=== PATIENT | male | born 1955 | race Caucasian/White ===

== ENCOUNTER 2020-04-25 10:59 | Inpatient (IN) ==
[2020-04-25] MEDS ORDERED: 0.9 % SODIUM CHLORIDE 2,000 ML IV ONE (11:37)
--- NOTE | 2020-04-25 12:41 | Cat Scan Report ---
CLINICAL INFORMATION: Trauma COMPARISON: 02/21/[address] TECHNIQUE: 2.5 mm helical slices were obtained in the skull base to vertex. Following reconstruction, axial reformatted images were reviewed at bone and parenchymal windows. The exam was performed using radiation dose optimization techniques including, but not limited to, automated exposure control, adjustment of the mA and/or kV according to patient size and use of iterative reconstruction technique. FINDINGS: The ventricles, sulci, fissures, and cisterns are normal in size and configuration for age. No extra-axial fluid collections are identified. The cerebrum, brainstem and cerebellum are unremarkable. There is no evidence of hemorrhage, mass effect, or edema. Bone windows show no osseous abnormality. moderate mucosal thickening in the left sphenoid and posterior left ethmoid air cell appreciated. Ethmoid mucosal thickening is new IMPRESSION: Normal head CT without contrast for age. Mild left sphenoid and left ethmoid sinusitis Interpreted and Authenticated by: Gokul Foss 04/25/20
[2020-04-25 12:51] LABS: Basophils # (Auto) 0.03 K/mcL (0.00-0.20); Basophils % (Auto) 0.2 % (0.0-2.0); Eosinophils # (Auto) 0.04 K/mcL (0.00-0.70); Eosinophils % (Auto) 0.3 % (0.0-7.0); Hematocrit 39.3 % (41.0-55.0); Hemoglobin 13.8 g/dL (13.5-16.5); Lymphocytes # (Auto) 0.79 K/mcL (1.50-4.80); Lymphocytes % (Auto) 6.6 % (15.0-49.0); Mean Cell Volume 85.2 fL (80.0-100.0); Mean Corpuscular HGB Conc 35.1 g/dL (31.0-36.0); Mean Platelet Volume 9.5 fL (7.4-10.4); Monocytes # (Auto) 0.76 K/mcL (0.10-0.90); Monocytes % (Auto) 6.3 % (1.0-12.0); Neutrophils % (Auto) 86.6 % (38.0-78.0); Platelet Count 270 K/mcL (140-440); RBC 4.61 M/mcL (4.50-5.90); Red Cell Distribution Width 15.7 % (11.5-14.5)
[2020-04-25 13:09] LABS: Alcohol, Blood < 10.0 mg/dL
[2020-04-25 13:25] LABS: proBNP 169.7 pg/mL (<125.0)
[2020-04-25 13:29] LABS: Thyroid Stimulating Hormone 2.92 uIU/mL (0.27-5.01)
[2020-04-25 13:35] LABS: INR 3.2 (0.9-1.1); Prothrombin Time 33.8 sec (11.9-14.5)
[2020-04-25 13:42] LABS: ALT/SGPT 17 U/L (<40); AST/SGOT 47 U/L (<40); Albumin 2.9 gm/dL (3.2-5.2); Albumin/Globulin Ratio 0.8 (1.0-2.3); Alkaline Phosphatase 100 U/L (39-117); Bilirubin,Total 1.1 mg/dL (0.1-1.0); Blood Urea Nitrogen 9 mg/dL (8-23); Calcium 7.7 mg/dL (8.6-10.4); Carbon Dioxide 27 mmol/L (22-30); Chloride 73 mmol/L (96-108); Globulin 3.8 gm/dL (2.2-3.7); Glomerular Filtration Rate 41; Glucose 152 mg/dL (70-105)
[2020-04-25] MEDS ORDERED: 0.9 % SODIUM CHLORIDE 1,000 ML IV ONE (13:50)
[2020-04-25] MEDS ORDERED: POTASSIUM CHLORIDE 20 MEQ TABLET PO ONE (13:51)
[2020-04-25] MEDS ORDERED: POTASSIUM CHLORIDE 40 MEQ in DEXTROSE 5% IN WATER 500 ML IV ONE ×2 (13:51→18:42)
--- NOTE | 2020-04-25 14:13 | Emergency Department Note ---
Fall HPI General Chief Complaint: Fall Stated Complaint: Fall Time Seen by Provider: 04/25/20 11:07 Source: patient Mode of arrival: ambulatory History of Present Illness HPI Narrative: Narrative: 64-year-old male fell and was generally weak. He could not get up off the floor. His son tried to help him as well but he could not get up. He feels weak in the legs and this has been going on for over a year now. Not new. He did not injure himself with that fall he did not hit his head nor his neck. He did not lose consciousness. He is on Xarelto for atrial fibrillation. He does admitting to drinking about 1/5 of hard alcohol every 3 days. He last drank at 11 PM last night. He is on 3 blood pressure medicines as well and his blood pressure here today is quite low so fluids were started on route by EMS-systolic was in the 70s. He denies recent illness or fever. Denies nausea vomiting diarrhea. However he did have some diarrhea 3 to 4 days ago. Related Data Home Medications Medication Instructions Recorded Confirmed rivaroxaban 20 mg tablet 20 mg PO QDAY 12/06/18 04/25/20 Previous Rx's Medication Instructions Recorded hydroxyzine HCl 25 mg tablet See Rx Instructions .ROUTE 12/11/19 .COMPLEX #30 unknown measurement unit code: tablet lisinopril 20 See Rx Instructions .ROUTE 03/05/20 mg-hydrochlorothiazide 25 mg tablet .COMPLEX #90 tab omeprazole 20 mg capsule,delayed See Rx Instructions .ROUTE 03/05/20 release .COMPLEX #90 cap polymyxin B sulfate 10,000 1 drp OPHTHALMIC Q3H 7 Days #10 ml 03/05/20 unit-trimethoprim 1 mg/mL eye drops verapamil 240 mg tablet,extended See Rx Instructions .ROUTE 03/11/20 release .COMPLEX #60 tab Allergies Allergy/AdvReac Type Severity Reaction Status Date / Time codeine AdvReac Severe Unknown Verified 03/05/20 10:14 Bee Stings AdvReac Unknown Unknown Uncoded 03/05/20 10:14 Kiwi fruit AdvReac Unknown Unknown Uncoded 03/05/20 10:14 Review of Systems ROS ROS Narrative: Narrative: All systems ED: reviewed and negative except as stated. [facility] Narrative Patient History Narrative: Narrative: Medical/Surgical/Family History All Active Problems (Updated 04/25/20 @ 15:27 by Cristino Heller MD) Acute hypokalemia (Acute) Acute kidney injury (Acute) Acute hyponatremia (Acute) Alcohol abuse (Acute) Acidosis, lactic (Acute) Hypomagnesemia (Acute) Fall (Acute) Weakness (Acute) Lower extremity edema (Acute) Conjunctivitis (Acute) Leg weakness, bilateral (Acute) Stasis dermatitis of both legs (Chronic) HTN (hypertension) (Chronic) TIA (transient ischemic attack) (Chronic) GERD (gastroesophageal reflux disease) (Chronic) Atrial fibrillation (Chronic) Chronic back pain (Chronic) Skin lesion (Chronic) Screening for malignant neoplasm of prostate (Chronic) Screening for malignant neoplasm of colon (Chronic) Physical exam (Chronic) Elevated liver enzymes (Chronic) Hyperlipidemia (Chronic) Medical History Atrial fibrillation (Chronic) Chronic back pain (Chronic) Elevated liver enzymes (Chronic) GERD (gastroesophageal reflux disease) (Chronic) History of stroke (Acute) HTN (hypertension) (Chronic) Hyperlipidemia (Chronic) Physical exam (Chronic) Screening for malignant neoplasm of colon (Chronic) Screening for malignant neoplasm of prostate (Chronic) Skin lesion (Chronic) TIA (transient ischemic attack) (Chronic) Surgical History Hx of arthroscopy of right knee (Acute) Hx of hernia repair (Acute) Hernia x2 Hx of wisdom tooth extraction (Acute) Family History Mother , Age 73 Stroke No problems noted. Father , Age 64 Lung Cancer No problems noted. Social History Smoking Status: Former smoker Alcohol Intake Frequency: holiday/special occasion only Exam Narrative Narrative: Narrative: No acute distress resting able to answer questions appropriately. Normocephalic atraumatic. Conjunctive are clear sclerae white nonicteric. No nasal discharge or congestion. Oropharynx pink and moist. Tongue is midline and face is symmetrical. Neck is supple without lymphadenopathy thyromegaly or carotid bruit. Heart is regular rate and rhythm no murmur appreciated. Lungs are clear to auscultation bilaterally without wheezes rales rhonchi or respiratory distress. Abdomen is soft nontender nondistended. No peritoneal signs or guarding. No pedal edema. +2 radial pulse. Alert oriented. I do not see any jaundice or icterus here. No asterixis. He may have some mild resting tremor but this is fine amplitude. Course Vital Signs Vital signs: Vital Signs Temperature 98.3 F 04/25/20 11:00 Pulse Rate 83 04/25/20 11:00 Respiratory Rate 18 04/25/20 11:00 Blood Pressure 101/49 04/25/20 11:00 Pulse Oximetry (%) 97 04/25/20 11:00 Temperature 98.3 F 04/25/20 11:00 Pulse Rate 56 L 04/25/20 13:47 Respiratory Rate 21 04/25/20 13:58 Blood Pressure 104/55 04/25/20 13:58 Pulse Oximetry (%) 89 L 04/25/20 13:47 MDM MDM Narrative Medical decision making narrative: Narrative: Work-up ordered with laboratory CT scan of the head EKG etc. broad differential but suspect alcohol-related issues He does have a mild leukocytosis and a significant hypokalemia. Noted elevated creatinine and decreased sodium. This could all cause some significant weakness. His blood pressure stabilized with IV fluids and he did not require pressors. CT of the head was negative. K rider is ordered for the hypokalemia Magnesium was low as well some mag rider was ordered. Because his lactic acid was so high-we continued IV fluids-he had 2 L in and then we slowed it down to 250 an hour. Concern for sepsis so we will get blood cultures and start Zosyn. He does have leukocytosis but not a fever. Alana Covid test was ordered in anticipation of admission. He is mildly orthostatic with standing. Procalcitonin is mildly elevated After getting all these fluids we repeated the lactic acid and ordered a blood gas. Chest x-ray is unrevealing. Liver labs do not show serious concern Discussed findings with the patient as well as with Dr. Gorman, our hospitalist. Dr. Gorman agreed to accept the patient- patient will need to come in to the ICU. At this time he is not exhibiting signs of withdrawal Lab Data Lab results reviewed: Yes I reviewed the patient's lab results. Result diagrams: 04/25/20 12:06 04/25/20 12:06 Labs: Lab Results 04/25/20 04/25/20 04/25/20 Range/Units 12:05 12:05 12:06 WBC 12.0 H (4.5-11.0) K/mcL RBC 4.61 (4.50-5.90) M/mcL Hgb 13.8 (13.5-16.5) g/dL Hct 39.3 L (41.0-55.0) % MCV 85.2 (80.0-100.0) fL MCH 29.9 (26.0-34.0) pg MCHC 35.1 (31.0-36.0) g/dL RDW 15.7 H (11.5-14.5) % Plt Count 270 (140-440) K/mcL MPV 9.5 (7.4-10.4) fL Neut % (Auto) 86.6 H (38.0-78.0) % Lymph % (Auto) 6.6 L (15.0-49.0) % Norman % (Auto) 6.3 (1.0-12.0) % Eos % (Auto) 0.3 (0.0-7.0) % Baso % (Auto) 0.2 (0.0-2.0) % Lymph # (Auto) 0.79 L (1.50-4.80) K/mcL Norman # (Auto) 0.76 (0.10-0.90) K/mcL Eos # (Auto) 0.04 (0.00-0.70) K/mcL Baso # (Auto) 0.03 (0.00-0.20) K/mcL Absolute Neutrophils 10.40 H (1.80-8.00) K/mcL PT (11.9-14.5) sec INR (0.9-1.1) VBG Lactic Acid (0.5-2.0) mmol/L Sodium (133-145) mmol/L Potassium (3.3-5.1) mmol/L Chloride (96-108) mmol/L Carbon Dioxide (22-30) mmol/L Anion Gap (8.0-16.0) BUN (8-23) mg/dL Creatinine (0.7-1.2) mg/dL GFR Calculation Glucose (70-105) mg/dL Calcium (8.6-10.4) mg/dL Total Bilirubin (0.1-1.0) mg/dL AST (<40) U/L ALT (<40) U/L Alkaline Phosphatase (39-117) U/L NT-Pro-B Natriuret Pep 169.7 H (<125.0) pg/mL Total Protein (5.9-8.4) gm/dL Albumin (3.2-5.2) gm/dL Globulin (2.2-3.7) gm/dL Albumin/Globulin Ratio (1.0-2.3) Procalcitonin 0.14 H (<0.10) ng/mL TSH 2.92 (0.27-5.01) uIU/mL Ethyl Alcohol (<0.010) gm/dL 04/25/20 04/25/20 04/25/20 Range/Units 12:06 12:06 12:06 WBC (4.5-11.0) K/mcL RBC (4.50-5.90) M/mcL Hgb (13.5-16.5) g/dL Hct (41.0-55.0) % MCV (80.0-100.0) fL MCH (26.0-34.0) pg MCHC (31.0-36.0) g/dL RDW (11.5-14.5) % Plt Count (140-440) K/mcL MPV (7.4-10.4) fL Neut % (Auto) (38.0-78.0) % Lymph % (Auto) (15.0-49.0) % Norman % (Auto) (1.0-12.0) % Eos % (Auto) (0.0-7.0) % Baso % (Auto) (0.0-2.0) % Lymph # (Auto) (1.50-4.80) K/mcL Norman # (Auto) (0.10-0.90) K/mcL Eos # (Auto) (0.00-0.70) K/mcL Baso # (Auto) (0.00-0.20) K/mcL Absolute Neutrophils (1.80-8.00) K/mcL PT 33.8 H (11.9-14.5) sec INR 3.2 H (0.9-1.1) VBG Lactic Acid 5.7 H* (0.5-2.0) mmol/L Sodium 120 L (133-145) mmol/L Potassium 2.1 L* (3.3-5.1) mmol/L Chloride 73 L (96-108) mmol/L Carbon Dioxide 27 (22-30) mmol/L Anion Gap 19.0 H (8.0-16.0) BUN 9 (8-23) mg/dL Creatinine 1.7 H (0.7-1.2) mg/dL GFR Calculation 41 Glucose 152 H (70-105) mg/dL Calcium 7.7 L (8.6-10.4) mg/dL Total Bilirubin 1.1 H (0.1-1.0) mg/dL AST 47 H (<40) U/L ALT 17 (<40) U/L Alkaline Phosphatase 100 (39-117) U/L NT-Pro-B Natriuret Pep (<125.0) pg/mL Total Protein 6.7 (5.9-8.4) gm/dL Albumin 2.9 L (3.2-5.2) gm/dL Globulin 3.8 H (2.2-3.7) gm/dL Albumin/Globulin Ratio 0.8 L (1.0-2.3) Procalcitonin (<0.10) ng/mL TSH (0.27-5.01) uIU/mL Ethyl Alcohol (<0.010) gm/dL 04/25/20 Range/Units 12:06 WBC (4.5-11.0) K/mcL RBC (4.50-5.90) M/mcL Hgb (13.5-16.5) g/dL Hct (41.0-55.0) % MCV (80.0-100.0) fL MCH (26.0-34.0) pg MCHC (31.0-36.0) g/dL RDW (11.5-14.5) % Plt Count (140-440) K/mcL MPV (7.4-10.4) fL Neut % (Auto) (38.0-78.0) % Lymph % (Auto) (15.0-49.0) % Norman % (Auto) (1.0-12.0) % Eos % (Auto) (0.0-7.0) % Baso % (Auto) (0.0-2.0) % Lymph # (Auto) (1.50-4.80) K/mcL Norman # (Auto) (0.10-0.90) K/mcL Eos # (Auto) (0.00-0.70) K/mcL Baso # (Auto) (0.00-0.20) K/mcL Absolute Neutrophils (1.80-8.00) K/mcL PT (11.9-14.5) sec INR (0.9-1.1) VBG Lactic Acid (0.5-2.0) mmol/L Sodium (133-145) mmol/L Potassium (3.3-5.1) mmol/L Chloride (96-108) mmol/L Carbon Dioxide (22-30) mmol/L Anion Gap (8.0-16.0) BUN (8-23) mg/dL Creatinine (0.7-1.2) mg/dL GFR Calculation Glucose (70-105) mg/dL Calcium (8.6-10.4) mg/dL Total Bilirubin (0.1-1.0) mg/dL AST (<40) U/L ALT (<40) U/L Alkaline Phosphatase (39-117) U/L NT-Pro-B Natriuret Pep (<125.0) pg/mL Total Protein (5.9-8.4) gm/dL Albumin (3.2-5.2) gm/dL Globulin (2.2-3.7) gm/dL Albumin/Globulin Ratio (1.0-2.3) Procalcitonin (<0.10) ng/mL TSH (0.27-5.01) uIU/mL Ethyl Alcohol 0.010 H (<0.010) gm/dL Radiology Data Radiology results reviewed: Yes I reviewed the patient's radiology results. Radiology results narrative: CT scan of the head shows no acute findings but he does have some mild sinusitis which is likely chronic Chest x-ray shows no acute cardiopulmonary disease EKG Data EKG #1: EKG attestation: Yes I reviewed and interpreted this EKG. and Yes There are no EKG findings of acute coronary syndrome EKG results narrative: Atrial fibrillation with a right bundle branch block and ventricular bigeminy. Otherwise normal rate Discharge Plan Patient/Caregiver Discharge Instructions Pt seen by BAIT PACKER/PA only: No Clinical Impression: Acute kidney injury, Lower extremity edema, Acute hypokalemia, Acute hyponatremia, Alcohol abuse, Acidosis, lactic, Hypomagnesemia, Fall, Weakness Patient Disposition: Xfer As Inpt ([facility]) Condition: Fair Follow up with: Juan Gardiner ARNP [Primary Care Provider] - Prescriptions: No Action polymyxin B sulf-trimethoprim [Polytrim] 10,000 unit- 1 mg/mL drops 1 drp OPHTHALMIC Q3H 7 Days Qty: 10 RF: 0 lisinopril-hydrochlorothiazide 20-25 mg tablet See Rx Instructions .ROUTE .COMPLEX Qty: 90 RF: 1 omeprazole 20 mg capsule,delayed release(DR/EC) See Rx Instructions .ROUTE .COMPLEX Qty: 90 RF: 1 hydroxyzine HCl 25 mg tablet 25 mg tablet See Rx Instructions .ROUTE .COMPLEX Qty: 30 RF: 3 verapamil 240 mg tablet extended release See Rx Instructions .ROUTE .COMPLEX Qty: 60 RF: 2 Xarelto 20 mg tablet 20 mg PO QDAY RF: 0
[2020-04-25 14:56] LABS: Appearance,Urine CLEAR (Clear); Bilirubin,Urine Negative (Negative); Color,Urine YELLOW; Culture Indicated,Urine No; Glucose,Urine (UA) Negative (Negative); Ketones,Urine Negative (Negative); Leukocyte Esterase,Urine Negative /ug (Negative); Mucus,Urine FEW /hpf; Nitrate,Urine Negative (Negative); Protein,Urine 30 mg/dL (Negative); Specific Gravity,Urine 1.011 (1.000-1.035); Urine Blood >=1.0 mg/dL (Negative); Urine Hyaline Cast 25 /lph (0-2); Urine RBC 43 /hpf (0-3); Urine Squamous Epithelial Cell < 1 /hpf (0-4); Urine Transitional Epi Cells < 1 /hpf (0-2); Urine WBC 5 /hpf (0-4); Urobilinogen,Urine Negative
[2020-04-25] MEDS ORDERED: PIPERACILLIN SODIUM/TAZOBACTAM 3.375 GM in DEXTROSE 5% IN WATER 50 ML IV ONE (15:19)
[2020-04-25] MEDS ORDERED: MAGNESIUM SULFATE 2 GM/50 ML BAG IV ONE (15:19)
--- NOTE | 2020-04-25 15:26 | XRay Report ---
CLINICAL INFORMATION: elevated wbc COMPARISON: None. FINDINGS: The heart is mildly enlarged. Mediastinum and pulmonary vessels are normal. Lungs are clear. No effusions. IMPRESSION: Mild cardiomegaly - no acute disease Interpreted and Authenticated by: Gokul Foss 04/25/20
--- NOTE | 2020-04-25 15:36 | Internal Med History&Physical ---
HPI History of Present Illness Patient information: Note initiated : 04/25/20 at 3:35 pm Service Date, if different from initiated Date: [] Patient: Deon Kaplan a 64 y/o M admitted on for Fall. Chief Complaint: Weakness and fall History of present illness: Mr. Kaplan is a 64 year old M with a known history of atrial fibrillation on anticoagulation/hypertension and excessive alcoholism who presents to ER following an episode of fall this morning. Patient apparently was not able to get up due to extreme weakness. His symptoms have been ongoing for the last week due to which he has not been able to drive. 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 He has been feeling poorly with loss of appetite/malaise weakness. In addition he endorses to episodes of multiple loose stools 3 days prior to presentation. Ever since has gotten progressively weaker. He denies sick contacts, changes in medications, fever, chills, bloody stool. He does endorse to one episode of emesis in the ER. He denies chest palpitation but endorses lightheadedness dizziness and unable to walk. He drinks fifth of alcohol every day. His last drink was 11 PM yesterday. He has no intentions to quit. He does appear depressed but does not endorses to suicidal ideation or recent hospitalization. He states that his alcohol intake has increased over the last 3 months but could not cite a specific reason other than possibly depression. He has some [id number] in [place] who [place] checks on him. Initial work-up in the ER was consistent with hypovolemic shock with blood pressure in 60s. Patient was started on aggressive crystalloids and subsequently vasopressors were initiated. White count over 12, creatinine 1.7 (baseline 0.7) lactic acid 5.7 and potassium 2.1. Patient was started on electrolyte replacement. Subsequently hospitalist service was consulted in light of shock likely hypovolemic versus septic from unclear source Review of systems 10 point review system was performed and is negative except for ones discussed above PFSH PFSH All Active Problems (Updated 04/25/20 @ 15:27 by Cristino Heller MD) Acute hypokalemia (Acute) Acute kidney injury (Acute) Acute hyponatremia (Acute) Alcohol abuse (Acute) Acidosis, lactic (Acute) Hypomagnesemia (Acute) Fall (Acute) Weakness (Acute) Lower extremity edema (Acute) Conjunctivitis (Acute) Leg weakness, bilateral (Acute) Stasis dermatitis of both legs (Chronic) HTN (hypertension) (Chronic) TIA (transient ischemic attack) (Chronic) GERD (gastroesophageal reflux disease) (Chronic) Atrial fibrillation (Chronic) Chronic back pain (Chronic) Skin lesion (Chronic) Screening for malignant neoplasm of prostate (Chronic) Screening for malignant neoplasm of colon (Chronic) Physical exam (Chronic) Elevated liver enzymes (Chronic) Hyperlipidemia (Chronic) Medical History Atrial fibrillation (Chronic) Chronic back pain (Chronic) Elevated liver enzymes (Chronic) GERD (gastroesophageal reflux disease) (Chronic) History of stroke (Acute) HTN (hypertension) (Chronic) Hyperlipidemia (Chronic) Physical exam (Chronic) Screening for malignant neoplasm of colon (Chronic) Screening for malignant neoplasm of prostate (Chronic) Skin lesion (Chronic) TIA (transient ischemic attack) (Chronic) Surgical History Hx of arthroscopy of right knee (Acute) Hx of hernia repair (Acute) Hernia x2 Hx of wisdom tooth extraction (Acute) Family History Mother , Age 73 Stroke No problems noted. Father , Age 64 Lung Cancer No problems noted. Social History frequency: other details: Regular smoking status: Former smoker quit date: 04/11/01 alcohol intake frequency: holiday/special occasion only MEDS/ALLERGIES Home Medications and Allergies Home Medications Medication Instructions Recorded Confirmed Type rivaroxaban 20 mg tablet 20 mg PO QDAY 12/06/18 04/25/20 History hydroxyzine HCl 25 mg tablet See Rx Instructions .ROUTE 12/11/19 04/25/20 Rx .COMPLEX #30 unknown measurement unit code: tablet lisinopril 20 See Rx Instructions .ROUTE 03/05/20 04/25/20 Rx mg-hydrochlorothiazide 25 mg tablet .COMPLEX #90 tab omeprazole 20 mg capsule,delayed See Rx Instructions .ROUTE 03/05/20 04/25/20 Rx release .COMPLEX #90 cap polymyxin B sulfate 10,000 1 drp OPHTHALMIC Q3H 7 Days #10 ml 03/05/20 04/25/20 Rx unit-trimethoprim 1 mg/mL eye drops verapamil 240 mg tablet,extended See Rx Instructions .ROUTE 03/11/20 04/25/20 Rx release .COMPLEX #60 tab Allergies Allergy/AdvReac Type Severity Reaction Status Date / Time codeine AdvReac Severe Unknown Verified 03/05/20 10:14 Bee Stings AdvReac Unknown Unknown Uncoded 03/05/20 10:14 Kiwi fruit AdvReac Unknown Unknown Uncoded 03/05/20 10:14 EXAM Constitutional Vitals: Temp Pulse Resp BP Pulse Ox 98.3 F 73 13 104/52 92 04/25/20 11:00 04/25/20 15:17 04/25/20 15:17 04/25/20 15:17 04/25/20 15:17 Flat affect Head normocephalic Oral cavity moist No ear nose discharge Eye movement symmetrical Neck supple no lymphadenopathy S1-S2 irregular atrial fibrillation Nonlabored breathing Nondistended nontender abdomen Lower extremity no cyanosis clubbing or joint swelling Skin no suspicious lesion Psych anxious but alert cooperative Neuro normal higher function DATA Data Completed and Pending Labs: Labs from last 24 hours 04/25/20 04/25/20 04/25/20 14:01 12:06 12:06 WBC RBC Hgb Hct MCV MCH MCHC RDW Plt Count MPV Neut % (Auto) Lymph % (Auto) [place] % (Auto) Eos % (Auto) Baso % (Auto) Lymph # (Auto) [place] # (Auto) Eos # (Auto) Baso # (Auto) Absolute Neutrophils PT INR VBG Lactic Acid 5.7 H* Sodium Potassium Chloride Carbon Dioxide Anion Gap BUN Creatinine GFR Calculation Glucose Calcium Magnesium Total Bilirubin AST ALT Alkaline Phosphatase NT-Pro-B Natriuret Pep Total Protein Albumin Globulin Albumin/Globulin Ratio Procalcitonin TSH Urine Color Yellow Urine Appearance Clear Urine pH 5.0 Ur Specific [place] 1.011 Urine Protein 30 A Urine Glucose (UA) Negative Urine Ketones Negative Urine Occult Blood >=1.0 A Urine Nitrate Negative Urine Bilirubin Negative Urine Urobilinogen Negative Ur Leukocyte Esterase Negative Urine RBC 43 H Urine WBC 5 H Ur Squamous Epith Cells < 1 Ur Transition Epith Cell < 1 Urine Bacteria None Hyaline Casts 25 H Urine Mucus Few A Ur Culture Indicated? No Ethyl Alcohol 0.010 H 04/25/20 04/25/20 04/25/20 12:06 12:06 12:06 WBC 12.0 H RBC 4.61 Hgb 13.8 Hct 39.3 L MCV 85.2 MCH 29.9 MCHC 35.1 RDW 15.7 H Plt Count 270 MPV 9.5 Neut % (Auto) 86.6 H Lymph % (Auto) 6.6 L [place] % (Auto) 6.3 Eos % (Auto) 0.3 Baso % (Auto) 0.2 Lymph # (Auto) 0.79 L [place] # (Auto) 0.76 Eos # (Auto) 0.04 Baso # (Auto) 0.03 Absolute Neutrophils 10.40 H PT 33.8 H INR 3.2 H VBG Lactic Acid Sodium 120 L Potassium 2.1 L* Chloride 73 L Carbon Dioxide 27 Anion Gap 19.0 H BUN 9 Creatinine 1.7 H GFR Calculation 41 Glucose 152 H Calcium 7.7 L Magnesium Total Bilirubin 1.1 H AST 47 H ALT 17 Alkaline Phosphatase 100 NT-Pro-B Natriuret Pep Total Protein 6.7 Albumin 2.9 L Globulin 3.8 H Albumin/Globulin Ratio 0.8 L Procalcitonin TSH Urine Color Urine Appearance Urine pH Ur Specific [place] Urine Protein Urine Glucose (UA) Urine Ketones Urine Occult Blood Urine Nitrate Urine Bilirubin Urine Urobilinogen Ur Leukocyte Esterase Urine RBC Urine WBC Ur Squamous Epith Cells Ur Transition Epith Cell Urine Bacteria Hyaline Casts Urine Mucus Ur Culture Indicated? Ethyl Alcohol 04/25/20 04/25/20 04/25/20 12:05 12:05 12:05 WBC RBC Hgb Hct MCV MCH MCHC RDW Plt Count MPV Neut % (Auto) Lymph % (Auto) [place] % (Auto) Eos % (Auto) Baso % (Auto) Lymph # (Auto) [place] # (Auto) Eos # (Auto) Baso # (Auto) Absolute Neutrophils PT INR VBG Lactic Acid Sodium Potassium Chloride Carbon Dioxide Anion Gap BUN Creatinine GFR Calculation Glucose Calcium Magnesium 1.2 L Total Bilirubin AST ALT Alkaline Phosphatase NT-Pro-B Natriuret Pep 169.7 H Total Protein Albumin Globulin Albumin/Globulin Ratio Procalcitonin 0.14 H TSH 2.92 Urine Color Urine Appearance Urine pH Ur Specific [place] Urine Protein Urine Glucose (UA) Urine Ketones Urine Occult Blood Urine Nitrate Urine Bilirubin Urine Urobilinogen Ur Leukocyte Esterase Urine RBC Urine WBC Ur Squamous Epith Cells Ur Transition Epith Cell Urine Bacteria Hyaline Casts Urine Mucus Ur Culture Indicated? Ethyl Alcohol A/P Narrative A/P Narrative: * Circulatory shock with endorgan dysfunction-start aggressive treatment on crystalloid/antibiotics/vasopressors. Trend venous lactate. Await pancultures. * Acute renal failure secondary to shock-monitor renal function/crystalloids/avoid nephrotoxins * Critical hypokalemia potassium 2.1-replace 160 meq of potassium over the next 12 hours. Serial BMP * Low magnesium on replacement * History of GERD continue PPI * Atrial fibrillation current rate controlled. Hold verapamil due to septic shock. Use digoxin/amiodarone if indicated. Anticoagulation on rivaroxaban * History of hypertension hold JEFFY inhibitor * History of excessive alcoholism high risk withdrawals. Start multivitamin/crystalloid/scheduled oral alcohol * Full code * Prophylaxis on rituximab Plan * Inpatient ICU admission * Crystalloid/vasopressors/antibiotics/pancultures * Electrolyte replacement * Monitor for withdrawal, schedule oral alcohol/multivitamins * Nutrition support per dietitian * Continue anticoagulation * Discharge planning/outpatient alcohol cessation rehab resources per case management Critical care time spent on management of circulatory shock/critical hypokalemia and renal failure in excess of 35 minutes Time Spent With Patient Time: Total time spent is greater than 50% in coordination of care (as documented) at patient's floor/unit and/or counseling patient:
[2020-04-25] MEDS ORDERED: DEXTROSE 5% IV PRN (16:32)
[2020-04-25] MEDS ORDERED: ONDANSETRON 4 MG/2 ML VIAL IV PRN (16:32)
[2020-04-25] MEDS ORDERED: ACETAMINOPHEN 325 MG TABLET PO PRN (16:32)
[2020-04-25] MEDS ORDERED: POTASSIUM CHLORIDE IV PRN (16:32)
[2020-04-25] MEDS ORDERED: WATER IV PRN (16:32)
[2020-04-25] MEDS ORDERED: ONDANSETRON 4 MG ODT TABLET SL PRN (16:32)
[2020-04-25] MEDS ORDERED: POLYETHYLENE GLYCOL 3350 17 GM PACKET PO PRN (16:32)
[2020-04-25] MEDS ORDERED: NOREPINEPHRINE BITARTRATE 8 MG in 0.9 % SODIUM CHLORIDE 242 ML IV PRN (16:32)
[2020-04-25] MEDS ORDERED: BISACODYL 10 MG SUPP.RECT PR PRN (16:32)
[2020-04-25] MEDS ORDERED: ACETAMINOPHEN 650 MG/65 ML BAG IV PRN (16:32)
[2020-04-25] MEDS: 0.9 % SODIUM CHLORIDE 1,000 ML IV SCH ×2 (16:58→19:20)
[2020-04-25] MEDS ORDERED: POTASSIUM CHLORIDE 20 MEQ/10 ML VIAL IV ONE ×3 (20:04)
[2020-04-25] MEDS: PIPERACILLIN SODIUM/TAZOBACTAM 3.375 GM in DEXTROSE 5% IN WATER 50 ML IV SCH (20:19)
[2020-04-25] MEDS: ETHYL ALCOHOL 30 ML ORAL.SOL PO PRN (20:20)
[2020-04-25] MEDS ORDERED: MELATONIN 3 MG TABLET PO PRN (21:00)
[2020-04-25] MEDS: 0.9 % SODIUM CHLORIDE 10 ML SYRINGE IV SCH (21:02)
[2020-04-25] MEDS: CYANOCOBALAMIN (VITAMIN B-12) 500 MCG TABLET PO SCH (21:02)
[2020-04-25] MEDS: DOCUSATE SODIUM 100 MG CAPSULE PO SCH (21:03)
[2020-04-25] MEDS: SENNOSIDES/DOCUSATE SODIUM 1 TAB TABLET PO SCH (21:04)
[2020-04-25] MEDS: 0.9 % SODIUM CHLORIDE 250 ML IV SCH (22:46)
[2020-04-26] MEDS ORDERED: POTASSIUM CHLORIDE 40 MEQ in DEXTROSE 5% IN WATER 500 ML IV ONE
[2020-04-26] MEDS: PIPERACILLIN SODIUM/TAZOBACTAM 3.375 GM in DEXTROSE 5% IN WATER 50 ML IV SCH ×4 (00:05→17:35)
[2020-04-26] MEDS: 0.9 % SODIUM CHLORIDE 1,000 ML IV SCH ×2 (04:41→08:40)
[2020-04-26] MEDS: 0.9 % SODIUM CHLORIDE 10 ML SYRINGE IV SCH ×4 (05:35→21:10)
[2020-04-26] MEDS: 0.9 % SODIUM CHLORIDE 250 ML IV SCH ×2 (06:13→16:22)
[2020-04-26 06:28] LABS: Basophils # (Auto) 0.03 K/mcL (0.00-0.20); Basophils % (Auto) 0.3 % (0.0-2.0); Eosinophils # (Auto) 0.19 K/mcL (0.00-0.70); Hematocrit 36.3 % (41.0-55.0); Hemoglobin 12.8 g/dL (13.5-16.5); Lymphocytes # (Auto) 1.32 K/mcL (1.50-4.80); Lymphocytes % (Auto) 14.2 % (15.0-49.0); Mean Cell Volume 85.2 fL (80.0-100.0); Mean Corpuscular HGB Conc 35.3 g/dL (31.0-36.0); Mean Platelet Volume 9.5 fL (7.4-10.4); Monocytes # (Auto) 0.55 K/mcL (0.10-0.90); Monocytes % (Auto) 5.9 % (1.0-12.0); Neutrophils % (Auto) 77.6 % (38.0-78.0); Platelet Count 262 K/mcL (140-440); RBC 4.26 M/mcL (4.50-5.90); Red Cell Distribution Width 15.7 % (11.5-14.5); WBC 9.3 K/mcL (4.5-11.0)
[2020-04-26 08:00] LABS: ALT/SGPT 15 U/L (<40); AST/SGOT 45 U/L (<40); Albumin/Globulin Ratio 0.9 (1.0-2.3); Alkaline Phosphatase 86 U/L (39-117); Bilirubin,Direct 0.4 mg/dL (<0.3); Blood Urea Nitrogen 6 mg/dL (8-23); Calcium 7.6 mg/dL (8.6-10.4); Carbon Dioxide 30 mmol/L (22-30); Chloride 80 mmol/L (96-108); Globulin 3.3 gm/dL (2.2-3.7); Glomerular Filtration Rate 88; Glucose 123 mg/dL (70-105); Lactate Dehydrogenase 160 U/L (135-225); Triglycerides 75 mg/dL (<150); Uric Acid 4.7 mg/dL (2.5-8.0)
[2020-04-26] MEDS ORDERED: WATER IV ONE (08:32)
[2020-04-26] MEDS ORDERED: DEXTROSE 5% IV ONE (08:32)
[2020-04-26] MEDS ORDERED: POTASSIUM PHOSPHATE IV ONE (08:32)
[2020-04-26] MEDS: CYANOCOBALAMIN (VITAMIN B-12) 500 MCG TABLET PO SCH ×2 (08:42→21:04)
[2020-04-26] MEDS: DOCUSATE SODIUM 100 MG CAPSULE PO SCH ×2 (08:42→21:05)
[2020-04-26] MEDS: FOLIC ACID 1 MG TABLET PO SCH (08:42)
[2020-04-26] MEDS: THIAMINE 100 MG TABLET PO SCH (08:42)
[2020-04-26] MEDS: MULTIVIT,THER IRON,CA,FA & MIN 1 TABLET PO SCH (08:42)
--- NOTE | 2020-04-26 09:31 | Internal Med Progress Note ---
SUBJECTIVE Subjective Patient information: Note initiated : 04/26/20 at 9:30 am Service Date, if different from initiated Date: [] Patient: Deon Kaplan 64 y/o M admitted on 04/25/20 for Fall. Chief Complaint: [] Interval history: Mr. Kaplan is a 64 year old M with a known history of atrial fibrillation on anticoagulation/hypertension and excessive alcoholism who presents to ER following an episode of fall this morning. Patient apparently was not able to get up due to extreme weakness. His symptoms have been ongoing for the last week due to which he has not been able to drive. He has a marketing support specialist Nikia who helps him on most days. He has been feeling poorly with loss of appetite/malaise weakness. In addition he endorses to episodes of multiple loose stools 3 days prior to presentation. Ever since has gotten progressively weaker. He denies sick contacts, changes in medications, fever, chills, bloody stool. He does endorse to one episode of emesis in the ER. He denies chest palpitation but endorses lightheadedness dizziness and unable to walk. He drinks fifth of alcohol every day. His last drink was 11 PM yesterday. He has no intentions to quit. He does appear depressed but does not endorses to suicidal ideation or recent hospitalization. He states that his alcohol intake has increased over the last 3 months but could not cite a specific reason other than possibly depression. He has some [id number] in the [place] who frequently checks on him. Initial work-up in the ER was consistent with hypovolemic shock with blood pressure in 60s. Patient was started on aggressive crystalloids and subsequently vasopressors were initiated. White count over 12, creatinine 1.7 (baseline 0.7) lactic acid 5.7 and potassium 2.1. Patient was started on electrolyte replacement. Subsequently hospitalist service was consulted in light of shock likely hypovolemic versus septic from unclear source 04/26-patient doing well with systolics much improved. Not on pressors overnight. Sodium up to 122, potassium up to 2.9. On aggressive replacement. Anion gap normalized. Magnesium 1.6/phosphorus 2, on oral alcohol 3 ounces every 6 hours. Minimally unsteady but no evidence of withdrawals or psychomotor agitation. White count down to 9.3. Cultures negative so far. Continue PT OT/dietary interventions. Constitutional Vitals: Vital Signs Temp Pulse Resp BP Pulse Ox 97.8 F 75 14 143/81 100 04/26/20 08:01 04/26/20 05:01 04/26/20 08:01 04/26/20 08:01 04/26/20 06:01 Period Temp Pulse Resp BP Sys/Arteaga Pulse Ox Last 24 Hr 97.3 F-98.3 F 35-83 13-21 81-143/42-83 89-100 Intake and Output 04/25/20 04/26/20 04/26/20 21:59 05:59 13:59 Intake Total 1457 1317 50 Output Total 1225 1725 100 Balance 232 -408 -50 Weight 120.111 kg minimal anxiety Tachycardia resolved Stable hemodynamics Nontender nondistended abdomen no lymphedema Intake & Output: Intake & Output 04/25/20 04/26/20 04/26/20 21:59 05:59 13:59 Intake Total 1457 1317 50 Output Total 1225 1725 100 Balance 232 -408 -50 Weight 120.111 kg Intake: IV 1457 1080 50 Sodium Chloride 0.9% 1,000 ml @ 817 1000 125 mls/hr IV .Q8H [facility] Rx#: [id number] Zosyn 3.375 gm In Dextrose 5% 100 50 50 in Water 50 ml @ 100 mls/hr IV Q6H [facility] Rx#:[id number] Potassium Chloride 40 Meq In 520 Dextrose 5% in Water 500 ml @ 130 mls/hr IV ONCE ONE Rx#: [id number] Oral 237 Output: Urine Catheter Amount 175 Void Amount 1050 1725 100 # of times incontinent of urine 0 Other: Urine Appearance Clear Clear Clear Urine Color Dark Yellow Pale Dark Yellow Urine Odor Normal Normal # Voids 1 1 OBJ DATA Labs CBC & Chem 7: 04/26/20 04:51 04/26/20 04:51 Labs: Abnormal Lab Results 04/26/20 04/26/20 04/25/20 04:51 04:51 14:01 WBC RBC 4.26 L Hgb 12.8 L Hct 36.3 L RDW 15.7 H Neut % (Auto) Lymph % (Auto) 14.2 L Lymph # (Auto) 1.32 L Absolute Neutrophils PT INR VBG Lactic Acid Sodium 122 L Potassium 2.9 L* Chloride 80 L Anion Gap BUN 6 L Creatinine Glucose 123 H Calcium 7.6 L Phosphorus 2.0 L Magnesium Total Bilirubin Direct Bilirubin 0.4 H AST 45 H NT-Pro-B Natriuret Pep Albumin 3.0 L Globulin Albumin/Globulin Ratio 0.9 L Procalcitonin Urine Protein 30 A Urine Occult Blood >=1.0 A Urine RBC 43 H Urine WBC 5 H Hyaline Casts 25 H Urine Mucus Few A Ethyl Alcohol 04/25/20 04/25/20 04/25/20 12:06 12:06 12:06 WBC RBC Hgb Hct RDW Neut % (Auto) Lymph % (Auto) Lymph # (Auto) Absolute Neutrophils PT INR VBG Lactic Acid 5.7 H* Sodium 120 L Potassium 2.1 L* Chloride 73 L Anion Gap 19.0 H BUN Creatinine 1.7 H Glucose 152 H Calcium 7.7 L Phosphorus Magnesium Total Bilirubin 1.1 H Direct Bilirubin AST 47 H NT-Pro-B Natriuret Pep Albumin 2.9 L Globulin 3.8 H Albumin/Globulin Ratio 0.8 L Procalcitonin Urine Protein Urine Occult Blood Urine RBC Urine WBC Hyaline Casts Urine Mucus Ethyl Alcohol 0.010 H 04/25/20 04/25/20 04/25/20 12:06 12:06 12:05 WBC 12.0 H RBC Hgb Hct 39.3 L RDW 15.7 H Neut % (Auto) 86.6 H Lymph % (Auto) 6.6 L Lymph # (Auto) 0.79 L Absolute Neutrophils 10.40 H PT 33.8 H INR 3.2 H VBG Lactic Acid Sodium Potassium Chloride Anion Gap BUN Creatinine Glucose Calcium Phosphorus Magnesium 1.2 L Total Bilirubin Direct Bilirubin AST NT-Pro-B Natriuret Pep Albumin Globulin Albumin/Globulin Ratio Procalcitonin Urine Protein Urine Occult Blood Urine RBC Urine WBC Hyaline Casts Urine Mucus Ethyl Alcohol 04/25/20 04/25/20 12:05 12:05 WBC RBC Hgb Hct RDW Neut % (Auto) Lymph % (Auto) Lymph # (Auto) Absolute Neutrophils PT INR VBG Lactic Acid Sodium Potassium Chloride Anion Gap BUN Creatinine Glucose Calcium Phosphorus Magnesium Total Bilirubin Direct Bilirubin AST NT-Pro-B Natriuret Pep 169.7 H Albumin Globulin Albumin/Globulin Ratio Procalcitonin 0.14 H Urine Protein Urine Occult Blood Urine RBC Urine WBC Hyaline Casts Urine Mucus Ethyl Alcohol Meds: Medications Acetaminophen (Tylenol) 650 mg PO Q4-6HP PRN; Protocol PRN Reason: Per Pain Protocol/Fever > 101 Last Admin: 04/25/20 21:01 Dose: 650 mg Documented by: Alcohol (Alcohol, Oral) 90 ml PO QID PRN PRN Reason: Alcohol Withdrawal Last Admin: 04/25/20 20:20 Dose: 90 ml Documented by: Bisacodyl (Dulcolax) 10 mg MI Q2-3DAYS PRN PRN Reason: Constipation Cyanocobalamin (Vitamin B-12) 1,000 mcg PO BID [facility] Stop: 04/30/20 09:01 Last Admin: 04/26/20 08:42 Dose: 1,000 mcg Documented by: Docusate Sodium (Colace) 100 mg PO BID [facility] Last Admin: 04/26/20 08:42 Dose: Not Given Documented by: Folic Acid (Folic Acid) 1 mg PO DAILY [facility] Last Admin: 04/26/20 08:42 Dose: 1 mg Documented by: Potassium Chloride 100 meq/ (Dextrose) 550 mls @ 130 mls/hr IV UD PRN PRN Reason: K+ = or < 3.5 Acetaminophen (Ofirmev) 650 mg in 65 mls @ 130 mls/hr IV Q6HP PRN; Protocol PRN Reason: Per Pain Protocol/Fever > 101 Magnesium Sulfate (Magnesium Sulfate) 2 gm in 50 mls @ 50 mls/hr IV UD PRN PRN Reason: MG = or < 1.7 Sodium Chloride (Sodium Chloride 0.9%) 1,000 mls @ 125 mls/hr IV .Q8H [facility] Stop: 04/26/20 16:31 Last Admin: 04/26/20 08:40 Dose: Not Given Documented by: Piperacillin Sod/Tazobactam (Sod 3.375 gm/ Dextrose) 50 mls @ 100 mls/hr IV Q6H [facility]; Protocol Last Infusion: 04/26/20 06:37 Dose: Infused Documented by: Norepinephrine Bitartrate 8 mg (/ Sodium Chloride) 250 mls @ 18.75 mls/hr IV Q14H PRN; Protocol PRN Reason: Keep MAP >70 Sodium Chloride (Sodium Chloride 0.9%) 250 mls @ 20 mls/hr IV .[id number] [facility] Last Admin: 04/26/20 06:13 Dose: Not Given Documented by: Potassium Phosphate 50 meq/ (Dextrose) 511.3636 mls @ 127.273 mls/hr IV ONCE ONE Stop: 04/26/20 12:33 Iron Carb/Multivit/[place]/Folic Acid (Multivitamin W/Minerals) 1 tab PO DAILY [facility] Last Admin: 04/26/20 08:42 Dose: 1 tab Documented by: Melatonin (Melatonin 3mg Tablet) 3 mg PO HSP PRN PRN Reason: Insomnia Ondansetron HCl (Zofran Odt) 4 mg SL Q4-6HP PRN; Protocol PRN Reason: Nausea And Vomiting Last Admin: 04/26/20 05:35 Dose: 4 mg Documented by: Ondansetron HCl (Zofran) 4 mg IV Q4-6HP PRN; Protocol PRN Reason: Nausea And Vomiting Polyethylene Glycol (Miralax) 17 gm PO DAILYP PRN PRN Reason: Constipation Potassium Chloride (Klor-Con) 40 meq PO DAILYP PRN PRN Reason: K+ < 3.5 Rivaroxaban (Xarelto) 20 mg PO QPMCC [facility] Senna/Docusate Sodium (Senna Plus Tablet) 1 tab PO HS [facility] Last Admin: 04/25/20 21:04 Dose: Not Given Documented by: Sodium Chloride (Saline Flush) 10 ml IV Q8 [facility] Last Admin: 04/26/20 05:35 Dose: 10 ml Documented by: Thiamine HCl (Vitamin B1) 100 mg PO DAILY [facility] Last Admin: 04/26/20 08:42 Dose: 100 mg Documented by: A/P Narrative A/P Narrative: * Circulatory shock with endorgan dysfunction-clinically resolved with aggressive crystalloids. Venous lactate 5.7 improving. Not requiring pressors * Critical hypokalemia/low magnesium/low phosphorus on aggressive IV and oral replacement * Acute renal failure secondary to shock-resolved. Creatinine down to 0.9 from 1.7. * History of GERD continue PPI * Atrial fibrillation current rate controlled. Restart verapamil. Anticoagulation on rivaroxaban * History of hypertension continue holding JEFFY inhibitor until systolics over 140 * History of excessive alcoholism high risk withdrawals. Continue oral alcohol/multivitamin * Full code * Prophylaxis on rivaroxaban Plan * Continue close monitoring for alcohol withdrawal * Crystalloid/vasopressors/antibiotics/pancultures * Start verapamil, continue aggressive electrolyte replacement * Nutrition support per dietitian * Continue anticoagulation * Discharge planning/outpatient alcohol cessation rehab resources per case management Critical care time spent on management of circulatory shock/critical hypokalemia and renal failure in excess of 35 minutes Time Spent With Patient Time: Total time spent is greater than 50% in coordination of care (as documented) at patient's floor/unit and/or counseling patient: QUALITY VTE Deep Vein Thrombosis/Pulmonary Embolism Present on Admission: No
[2020-04-26] MEDS ORDERED: NEUTRA PHOS 1 PACKET PO PRN (09:55)
[2020-04-26] MEDS ORDERED: hydrOXYzine 25 MG TABLET PO PRN (10:04)
[2020-04-26] MEDS: VERAPAMIL 120 MG TAB.XL.24H PO SCH ×2 (10:11→21:04)
[2020-04-26] MEDS: POTASSIUM CHLORIDE 20 MEQ PACKET PO PRN (10:11)
[2020-04-26] MEDS: OMEPRAZOLE 20 MG CAPSULE PO SCH (10:12)
[2020-04-26] MEDS: MAGNESIUM SULFATE 2 GM/50 ML BAG IV PRN (10:12)
[2020-04-26] MEDS: RIVAROXABAN 20 MG TABLET PO SCH (10:29)
[2020-04-26] MEDS: ETHYL ALCOHOL 30 ML ORAL.SOL PO PRN ×2 (10:30→16:53)
[2020-04-26] MEDS: SENNOSIDES/DOCUSATE SODIUM 1 TAB TABLET PO SCH (21:05)
[2020-04-27] MEDS: PIPERACILLIN SODIUM/TAZOBACTAM 3.375 GM in DEXTROSE 5% IN WATER 50 ML IV SCH ×2 (00:02→05:11)
[2020-04-27] MEDS: 0.9 % SODIUM CHLORIDE 10 ML SYRINGE IV SCH ×3 (05:11→21:20)
[2020-04-27 06:14] LABS: Basophils # (Auto) 0.03 K/mcL (0.00-0.20); Basophils % (Auto) 0.4 % (0.0-2.0); Eosinophils # (Auto) 0.23 K/mcL (0.00-0.70); Eosinophils % (Auto) 3.3 % (0.0-7.0); Hematocrit 34.2 % (41.0-55.0); Hemoglobin 11.7 g/dL (13.5-16.5); Lymphocytes # (Auto) 1.28 K/mcL (1.50-4.80); Lymphocytes % (Auto) 18.1 % (15.0-49.0); Mean Cell Volume 88.6 fL (80.0-100.0); Mean Corpuscular HGB Conc 34.2 g/dL (31.0-36.0); Mean Platelet Volume 9.4 fL (7.4-10.4); Monocytes # (Auto) 0.53 K/mcL (0.10-0.90); Monocytes % (Auto) 7.5 % (1.0-12.0); Neutrophils % (Auto) 70.7 % (38.0-78.0); Platelet Count 264 K/mcL (140-440); RBC 3.86 M/mcL (4.50-5.90); Red Cell Distribution Width 16.5 % (11.5-14.5); WBC 7.1 K/mcL (4.5-11.0)
[2020-04-27] MEDS: 0.9 % SODIUM CHLORIDE 250 ML IV SCH (06:26)
[2020-04-27 06:38] LABS: ALT/SGPT 14 U/L (<40); AST/SGOT 36 U/L (<40); Albumin 2.6 gm/dL (3.2-5.2); Albumin/Globulin Ratio 0.8 (1.0-2.3); Alkaline Phosphatase 75 U/L (39-117); Bilirubin,Direct 0.3 mg/dL (<0.3); Bilirubin,Total 0.7 mg/dL (0.1-1.0); Blood Urea Nitrogen 4 mg/dL (8-23); Calcium 7.9 mg/dL (8.6-10.4); Carbon Dioxide 33 mmol/L (22-30); Chloride 87 mmol/L (96-108); Globulin 3.3 gm/dL (2.2-3.7); Glomerular Filtration Rate 78; Glucose 110 mg/dL (70-105); Lactate Dehydrogenase 158 U/L (135-225); Phosphorous 3.6 mg/dL (2.5-4.5); Triglycerides 65 mg/dL (<150); Uric Acid 3.5 mg/dL (2.5-8.0)
[2020-04-27] MEDS: CYANOCOBALAMIN (VITAMIN B-12) 500 MCG TABLET PO SCH ×2 (07:23→20:58)
[2020-04-27] MEDS: DOCUSATE SODIUM 100 MG CAPSULE PO SCH ×2 (07:23→20:53)
[2020-04-27] MEDS: OMEPRAZOLE 20 MG CAPSULE PO SCH ×2 (07:23→16:03)
[2020-04-27] MEDS: THIAMINE 100 MG TABLET PO SCH (07:23)
[2020-04-27] MEDS: FOLIC ACID 1 MG TABLET PO SCH (07:23)
[2020-04-27] MEDS: VERAPAMIL 120 MG TAB.XL.24H PO SCH ×2 (07:23→20:58)
[2020-04-27] MEDS: MULTIVIT,THER IRON,CA,FA & MIN 1 TABLET PO SCH (07:23)
[2020-04-27] MEDS: RIVAROXABAN 20 MG TABLET PO SCH (07:25)
[2020-04-27] MEDS ORDERED: POTASSIUM CHLORIDE 100 MEQ in DEXTROSE 5% IN WATER 1,000 ML IV PRN (08:00)
[2020-04-27] MEDS: POTASSIUM CHLORIDE 20 MEQ PACKET PO PRN (08:30)
[2020-04-27] MEDS: ETHYL ALCOHOL 30 ML ORAL.SOL PO PRN ×3 (09:34→17:39)
[2020-04-27] MEDS ORDERED: CAPSAICIN 0.025% CREAM.TOP 60GM TOPICAL PRN (09:37)
[2020-04-27] MEDS ORDERED: METHYL SALICYLATE TOPICAL PRN (09:40)
[2020-04-27] MEDS ORDERED: MENTHOL TOPICAL PRN (09:40)
[2020-04-27] MEDS ORDERED: LIDOCAINE JEL 2% 1 TUBE 5ML TOPICAL PRN (09:51)
--- NOTE | 2020-04-27 10:15 | Internal Med Progress Note ---
SUBJECTIVE Subjective Patient information: Note initiated : 04/27/20 at 10:11 am Service Date, if different from initiated Date: [] Patient: Deon Kaplan a 64 y/o M admitted on 04/25/20 for Fall. Chief Complaint: [] Interval history: Mr. Kaplan is a 64 year old M with a known history of atrial fibrillation on anticoagulation/hypertension and excessive alcoholism who presents to ER following an episode of fall this morning. Patient apparently wa s not able to get up due to extreme weakness. His symptoms have been ongoing for the last week due to which he has not been able to drive. 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 He has been feeling poorly with loss of appetite/malaise weakness. In addition he endorses to episodes of multiple loose stools 3 days prior to presentation. Ever since has gotten progressively weaker. He denies sick contacts, changes in medications, fever, chills, bloody stool. He does endorse to one episode of emesis in the ER. He denies chest palpitation but endorses lightheadedness dizziness and unable to walk. He drinks fifth of alcohol every day. His last drink was 11 PM yesterday. He has no intentions to quit. He does appear depressed but does not endorses to suicidal ideation or r ecent hospitalization. He states that his alcohol intake has increased over the last 3 months but could not cite a specific reason other than possibly depression. He has some [id number] in the [place] who frequently checks on him. Initial work-up in the ER was consistent with hypovolemic shock with blood pressure in 60s. Patient was started on aggressive crystalloids and subsequently vasopressors were initiated. White count over 12, creatinine 1.7 (baseline 0.7) lactic acid 5.7 and potassium 2.1. Patient was started on electrolyte replacement. Subsequently hospitalist service was consulted in light of shock likely hypovolemic versus septic from unclear source 04/26-patient doing well with systolics much improved. Not on pressors overnight. Sodium up to 122, potassium up to 2.9. On aggressive replacement. Anion gap normalized. Magnesium 1.6/phosphorus 2, on oral alcohol 3 ounces every 6 hours. Minimally unsteady but no evidence of withdrawals or psychomotor agitation. White count down to 9.3. Cultures negative so far. Continue PT OT/dietary interventions. 04/27-gradual clinical improvement noted. On oral alcohol. Electrolytes improving with replacement. Ongoing therapies. Anticipate discharge in 24 hours. Telemetry A. fib with bigeminy. On dietary interventions per dietitian. White count 7000. Cultures negative so far. DC antibiotic coverage today. P otassium improved to 3. Sodium improved to 148. Magnesium improved to 1.8. Constitutional Vitals: Vital Signs Temp Pulse Resp BP Pulse Ox 98.5 F 18 L 20 124/67 95 04/27/20 07:59 04/27/20 03:00 04/27/20 07:00 04/27/20 10:01 04/27/20 10:01 Period Temp Pulse Resp BP Sys/Arteaga Pulse Ox Last 24 Hr 97.4 F-99.1 F 16-80 14-20 91-165/58-102 90-100 Intake and Output 04/26/20 04/27/20 04/27/20 21:59 05:59 13:59 Intake Total 1898.3636 50 230 Output Total 975 675 100 Balance 923.3636 -625 130 Weight 120.338 kg Intake & Output: Intake & Output 04/26/20 04/27/20 04/27/20 21:59 05:59 13:59 Intake Total 1898.3636 50 230 Output Total 975 675 100 Balance 923.3636 -625 130 Weight 120.338 kg Intake: IV 1661.3636 50 50 Sodium Chloride 0.9% 1,000 ml @ 1000 125 mls/hr IV .Q8H [facility] Rx#: [id number] Zosyn 3.375 gm In Dextrose 5% 100 50 50 in Water 50 ml @ 100 mls/hr IV Q6H [facility] Rx#:[id number] Potassium Phosphate 50 Meq In 511.3636 Dextrose 5% in Water 500 ml @ 127.273 mls/hr IV ONCE ONE Rx#: [id number] Oral 237 180 Output: Void Amount 975 675 100 Other: Meal Breakfast Percent of Meal Consumed 100% Urine Appearance Clear Clear Clear Urine Color Light Arlene Bright Yellow Bright Yellow Urine Odor Normal Normal Strong alert but anxious Nonlabored breathing Nontender nondistended abdomen No telemetry events OBJ DATA Labs CBC & Chem 7: 04/27/20 05:00 04/27/20 05:00 Labs: Abnormal Lab Results 04/27/20 04/27/20 04/26/20 05:00 05:00 04:51 WBC RBC 3.86 L Hgb 11.7 L Hct 34.2 L RDW 16.5 H Neut % (Auto) Lymph % (Auto) Lymph # (Auto) 1.28 L Absolute Neutrophils PT INR VBG Lactic Acid Sodium 128 L 122 L Potassium 3.0 L 2.9 L* Chloride 87 L 80 L Carbon Dioxide 33 H Anion Gap BUN 4 L 6 L Creatinine Glucose 110 H 123 H Calcium 7.9 L 7.6 L Phosphorus 2.0 L Magnesium Total Bilirubin Direct Bilirubin 0.3 H 0.4 H AST 45 H NT-Pro-B Natriuret Pep Albumin 2.6 L 3.0 L Globulin Albumin/Globulin Ratio 0.8 L 0.9 L Procalcitonin Urine Protein Urine Occult Blood Urine RBC Urine WBC Hyaline Casts Urine Mucus Ethyl Alcohol 04/26/20 04/25/20 04/25/20 04:51 14:01 12:06 WBC RBC 4.26 L Hgb 12.8 L Hct 36.3 L RDW 15.7 H Neut % (Auto) Lymph % (Auto) 14.2 L Lymph # (Auto) 1.32 L Absolute Neutrophils PT INR VBG Lactic Acid Sodium Potassium Chloride Carbon Dioxide Anion Gap BUN Creatinine Glucose Calcium Phosphorus Magnesium Total Bilirubin Direct Bilirubin AST NT-Pro-B Natriuret Pep Albumin Globulin Albumin/Globulin Ratio Procalcitonin Urine Protein 30 A Urine Occult Blood >=1.0 A Urine RBC 43 H Urine WBC 5 H Hyaline Casts 25 H Urine Mucus Few A Ethyl Alcohol 0.010 H 04/25/20 04/25/20 04/25/20 12:06 12:06 12:06 WBC RBC Hgb Hct RDW Neut % (Auto) Lymph % (Auto) Lymph # (Auto) Absolute Neutrophils PT 33.8 H INR 3.2 H VBG Lactic Acid 5.7 H* Sodium 120 L Potassium 2.1 L* Chloride 73 L Carbon Dioxide Anion Gap 19.0 H BUN Creatinine 1.7 H Glucose 152 H Calcium 7.7 L Phosphorus Magnesium Total Bilirubin 1.1 H Direct Bilirubin AST 47 H NT-Pro-B Natriuret Pep Albumin 2.9 L Globulin 3.8 H Albumin/Globulin Ratio 0.8 L Procalcitonin Urine Protein Urine Occult Blood Urine RBC Urine WBC Hyaline Casts Urine Mucus Ethyl Alcohol 04/25/20 04/25/20 04/25/20 12:06 12:05 12:05 WBC 12.0 H RBC Hgb Hct 39.3 L RDW 15.7 H Neut % (Auto) 86.6 H Lymph % (Auto) 6.6 L Lymph # (Auto) 0.79 L Absolute Neutrophils 10.40 H PT INR VBG Lactic Acid Sodium Potassium Chloride Carbon Dioxide Anion Gap BUN Creatinine Glucose Calcium Phosphorus Magnesium 1.2 L Total Bilirubin Direct Bilirubin AST NT-Pro-B Natriuret Pep Albumin Globulin Albumin/Globulin Ratio Procalcitonin 0.14 H Urine Protein Urine Occult Blood Urine RBC Urine WBC Hyaline Casts Urine Mucus Ethyl Alcohol 04/25/20 12:05 WBC RBC Hgb Hct RDW Neut % (Auto) Lymph % (Auto) Lymph # (Auto) Absolute Neutrophils PT INR VBG Lactic Acid Sodium Potassium Chloride Carbon Dioxide Anion Gap BUN Creatinine Glucose Calcium Phosphorus Magnesium Total Bilirubin Direct Bilirubin AST NT-Pro-B Natriuret Pep 169.7 H Albumin Globulin Albumin/Globulin Ratio Procalcitonin Urine Protein Urine Occult Blood Urine RBC Urine WBC Hyaline Casts Urine Mucus Ethyl Alcohol Meds: Medications Acetaminophen (Tylenol) 650 mg PO Q4-6HP PRN; Protocol PRN Reason: Per Pain Protocol/Fever > 101 Last Admin: 04/25/20 21:01 Dose: 650 mg Documented by: Alcohol (Alcohol, Oral) 90 ml PO QID PRN PRN Reason: Alcohol Withdrawal Last Admin: 04/27/20 09:34 Dose: 90 ml Documented by: Bisacodyl (Dulcolax) 10 mg MI Q2-3DAYS PRN PRN Reason: Constipation Capsaicin (Zostrix) 1 dose TOPICAL QIDP PRN PRN Reason: Muscle Pain Last Admin: 04/27/20 10:06 Dose: 1 dose Documented by: Cyanocobalamin (Vitamin B-12) 1,000 mcg PO BID [facility] Stop: 04/30/20 09:01 Last Admin: 04/27/20 07:23 Dose: 1,000 mcg Documented by: Docusate Sodium (Colace) 100 mg PO BID [facility] Last Admin: 04/27/20 07:23 Dose: Not Given Documented by: Folic Acid (Folic Acid) 1 mg PO DAILY [facility] Last Admin: 04/27/20 07:23 Dose: 1 mg Documented by: Hydroxyzine HCl (Atarax) 25 mg PO TIDP PRN PRN Reason: Itching Acetaminophen (Ofirmev) 650 mg in 65 mls @ 130 mls/hr IV Q6HP PRN; Protocol PRN Reason: Per Pain Protocol/Fever > 101 Magnesium Sulfate (Magnesium Sulfate) 2 gm in 50 mls @ 50 mls/hr IV UD PRN PRN Reason: MG = or < 1.7 Last Infusion: 04/26/20 14:29 Dose: Infused Documented by: Piperacillin Sod/Tazobactam (Sod 3.375 gm/ Dextrose) 50 mls @ 100 mls/hr IV Q6H [facility]; Protocol Last Infusion: 04/27/20 06:26 Dose: Infused Documented by: Norepinephrine Bitartrate 8 mg (/ Sodium Chloride) 250 mls @ 18.75 mls/hr IV Q14H PRN; Protocol PRN Reason: Keep MAP >70 Sodium Chloride (Sodium Chloride 0.9%) 250 mls @ 20 mls/hr IV .[id number] [facility] Last Admin: 04/27/20 06:26 Dose: Not Given Documented by: Potassium Chloride 100 meq/ (Dextrose) 1,050 mls @ 100 mls/hr IV UD PRN PRN Reason: K+ = or < 3.5 Last Admin: 04/27/20 08:29 Dose: 100 mls/hr Documented by: Iron Carb/Multivit/S[employer]ruder/Folic Acid (Multivitamin W/Minerals) 1 tab PO DAILY [facility] Last Admin: 04/27/20 07:23 Dose: 1 tab Documented by: Lidocaine HCl (Xylocaine Jel 2%) 1 dose TOPICAL ONCE PRN PRN Reason: Pain Melatonin (Melatonin 3mg Tablet) 3 mg PO HSP PRN PRN Reason: Insomnia [facility]ep[facility]) [facility] Last Admin: 04/27/20 07:23 Dose: 20 mg Documented by: Ondansetron HCl (Zofran Odt) 4 mg SL Q4-6HP PRN; Protocol PRN Reason: Nausea And Vomiting Last Admin: 04/26/20 05:35 Dose: 4 mg Documented by: Ondansetron HCl (Zofran) 4 mg IV Q4-6HP PRN; Protocol PRN Reason: Nausea And Vomiting Polyethylene Glycol (Miralax) 17 gm PO DAILYP PRN PRN Reason: Constipation Potassium Chloride (Klor-Con) 40 meq PO DAILYP PRN PRN Reason: K+ < 3.5 Last Admin: 04/27/20 08:30 Dose: 40 meq Documented by: Potassium/Phosphorus/Sodium (Neutra Phos) 2 packet PO DAILY PRN PRN Reason: PHOS <2.5 Rivaroxaban (Xarelto) 20 mg PO DAILY [facility] Last Admin: 04/27/20 07:25 Dose: 20 mg Documented by: Senna/Docusate Sodium (Senna Plus Tablet) 1 tab PO HS [facility] Last Admin: 04/26/20 21:05 Dose: Not Given Documented by: Sodium Chloride (Saline Flush) 10 ml IV Q8 [facility] Last Admin: 04/27/20 05:11 Dose: 10 ml Documented by: Thiamine HCl (Vitamin B1) 100 mg PO DAILY [facility] Last Admin: 04/27/20 07:23 Dose: 100 mg Documented by: Verapamil HCl (Calan Sr) 240 mg PO BID [facility] Last Admin: 04/27/20 07:23 Dose: 240 mg Documented by: A/P Narrative A/P Narrative: * Circulatory shock with endorgan dysfunction-clinically resolved. Hemodynamic stable. DC antibiotics as no evidence of infection. * Multiple electrolyte abnormalities secondary alcoholism. Clinically improving with aggressive replacement. * Acute renal failure secondary to shock-resolved. Creatinine down to 0.9 from 1.7. * History of GERD continue PPI * Atrial fibrillation current rate controlled. Continue home dose verapamil. Anticoagulation on rivaroxaban * History of hypertension continue holding JEFFY inhibitor until systolics over 140 * History of excessive alcoholism high risk withdrawals. Continue oral alcohol/ multivitamin * Full code * Prophylaxis on rivaroxaban Plan * Continue aggressive electrolyte replacement * Nutrition support/physical therapies * Continue verapamil * DC antibiotics * Continue anticoagulation * Discharge planning/outpatient alcohol cessation rehab resources per case management Critical care time spent on management of circulatory shock/critical hypokalemia and renal failure in excess of 35 minutes Time Spent With Patient Time: Total time spent is greater than 50% in coordination of care (as documented) at patient's floor/unit and/or counseling patient: QUALITY VTE Deep Vein Thrombosis/Pulmonary Embolism Present on Admission: No
--- NOTE | 2020-04-27 13:03 | XRay Report ---
CLINICAL INFORMATION: Interval Change COMPARISON: 04/25/2020 FINDINGS: Mild cardiomegaly is unchanged. Mediastinum and pulmonary vessels are normal. Lungs are clear. No effusions. IMPRESSION: Mild stable cardiomegaly Interpreted and Authenticated by: Gokul Foss 04/27/20
[2020-04-27] MEDS ORDERED: PHENobarb/HYOSCY/ATROPINE/SCOP 1 DOSE BOTTLE PO PRN (15:28)
[2020-04-27] MEDS: SENNOSIDES/DOCUSATE SODIUM 1 TAB TABLET PO SCH (20:53)
[2020-04-28 05:50] LABS: Basophils # (Auto) 0.03 K/mcL (0.00-0.20); Basophils % (Auto) 0.5 % (0.0-2.0); Eosinophils % (Auto) 3.2 % (0.0-7.0); Hematocrit 34.2 % (41.0-55.0); Hemoglobin 11.6 g/dL (13.5-16.5); Lymphocytes # (Auto) 1.59 K/mcL (1.50-4.80); Lymphocytes % (Auto) 25.3 % (15.0-49.0); Mean Cell Volume 89.5 fL (80.0-100.0); Mean Corpuscular HGB Conc 33.9 g/dL (31.0-36.0); Mean Platelet Volume 9.3 fL (7.4-10.4); Monocytes # (Auto) 0.63 K/mcL (0.10-0.90); Platelet Count 263 K/mcL (140-440); RBC 3.82 M/mcL (4.50-5.90); Red Cell Distribution Width 16.7 % (11.5-14.5); WBC 6.3 K/mcL (4.5-11.0)
[2020-04-28 06:17] LABS: ALT/SGPT 15 U/L (<40); AST/SGOT 34 U/L (<40); Albumin 2.8 gm/dL (3.2-5.2); Albumin/Globulin Ratio 0.8 (1.0-2.3); Alkaline Phosphatase 70 U/L (39-117); Bilirubin,Direct 0.2 mg/dL (<0.3); Bilirubin,Total 0.5 mg/dL (0.1-1.0); Blood Urea Nitrogen 5 mg/dL (8-23); Calcium 8.1 mg/dL (8.6-10.4); Carbon Dioxide 32 mmol/L (22-30); Chloride 88 mmol/L (96-108); Globulin 3.3 gm/dL (2.2-3.7); Glomerular Filtration Rate 78; Glucose 110 mg/dL (70-105); Lactate Dehydrogenase 167 U/L (135-225); Phosphorous 2.8 mg/dL (2.5-4.5); Triglycerides 61 mg/dL (<150); Uric Acid 3.5 mg/dL (2.5-8.0)
[2020-04-28] MEDS: 0.9 % SODIUM CHLORIDE 10 ML SYRINGE IV SCH (06:42)
[2020-04-28] MEDS: OMEPRAZOLE 20 MG CAPSULE PO SCH (06:42)
[2020-04-28] MEDS: MAGNESIUM SULFATE 2 GM/50 ML BAG IV PRN (09:14)
[2020-04-28] MEDS: THIAMINE 100 MG TABLET PO SCH (09:15)
[2020-04-28] MEDS: VERAPAMIL 120 MG TAB.XL.24H PO SCH (09:16)
[2020-04-28] MEDS: CYANOCOBALAMIN (VITAMIN B-12) 500 MCG TABLET PO SCH (09:16)
[2020-04-28] MEDS: RIVAROXABAN 20 MG TABLET PO SCH (09:16)
[2020-04-28] MEDS: FOLIC ACID 1 MG TABLET PO SCH (09:16)
[2020-04-28] MEDS: DOCUSATE SODIUM 100 MG CAPSULE PO SCH (09:16)
[2020-04-28] MEDS: MULTIVIT,THER IRON,CA,FA & MIN 1 TABLET PO SCH (09:16)
--- NOTE | 2020-04-28 10:17 | Discharge Summary ---
Discharge Provider Provider Patient information: Note initiated : 04/28/20 at 10:14 am Service Date, if different from initiated Date: [] Patient: Deon Kaplan 64 y/o M admitted on 04/25/20 for Fall. Discharge diagnosis * Circulatory shock with endorgan dysfunction-clinically resolved. No evidence of infection. Hemodynamically stable. Discharging with home health * Multiple electrolyte abnormalities secondary alcoholism. clinically resolved with aggressive replacement. * Acute renal failure secondary to shock-resolved. Creatinine down to 0.9 from 1.7. * History of GERD continue PPI * Atrial fibrillation current rate controlled. Continue home dose verapamil. Anticoagulation on rivaroxaban * History of hypertension continue holding JEFFY inhibitor until systolics over 140 * History of excessive alcoholism high risk withdrawals. Continue oral alcohol/multivitamin Brief hospital course Interval history: Mr. Kaplan is a 64 year old M with a known history of atrial fibrillation on anticoagulation/hypertension and excessive alcoholism who presents to ER following an episode of fall this morning. Patient apparently was not able to get up due to extreme weakness. His symptoms have been ongoing for the last week due to which he has not been able to drive. 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 He has been feeling poorly with loss of appetite/malaise weakness. In addition he endorses to episodes of multiple loose stools 3 days prior to presentation. Ever since has gotten progressively weaker. He denies sick contacts, changes in medications, fever, chills, bloody stool. He does endorse to one episode of emesis in the ER. He denies chest palpitation but endorses lightheadedness dizziness and unable to walk. He drinks fifth of alcohol every day. His last drink was 11 PM yesterday. He has no intentions to quit. He does appear depressed but does not endorses to suicidal ideation or recent hospitalization. He states that his alcohol intake has increased over the last 3 months but could not cite a specific reason other than possibly depression. He has some [id number] on him. Initial work-up in the ER was consistent with hypovolemic shock with blood pressure in 60s. Patient was started on aggressive crystalloids and subsequently vasopressors were initiated. White count over 12, creatinine 1.7 (baseline 0.7) lactic acid 5.7 and potassium 2.1. Patient was started on electrolyte replacement. Subsequently hospitalist service was consulted in light of shock likely hypovolemic versus septic from unclear source 04/26-patient doing well with systolics much improved. Not on pressors overnight. Sodium up to 122, potassium up to 2.9. On aggressive replacement. Anion gap normalized. Magnesium 1.6/phosphorus 2, on oral alcohol 3 ounces every 6 hours. Minimally unsteady but no evidence of withdrawals or psychomotor agitation. White count down to 9.3. Cultures negative so far. Continue PT OT/dietary interventions. 04/27-gradual clinical improvement noted. On oral alcohol. Electrolytes improving with replacement. Ongoing therapies. Anticipate discharge in 24 hours. Telemetry A. fib with bigeminy. On dietary interventions per dietitian. White count 7000. Cultures negative so far. DC antibiotic coverage today. Potassium improved to 3. Sodium improved to 148. Magnesium improved to 1.8. 04/28-patient doing well. No overnight events. Potassium improved to 3.5. Ongoing phosphorus replacement. Tolerating diet. Counseled for alcohol cessation however not inclined at this time. Recommend outpatient behavioral health clinic follow-up for alcohol detoxification if patient desires. More steady on feet. Ongoing physical therapy. Discharging home with home health physical therapy. Off antibiotics. Date of admission: 04/25/20 16:15 Discharge date: 04/28/20 Primary care physician: VLADIMIR Andujar Consults: 04/25/20 Consult to Physician [CONS] Stat Comment: Consulting Provider: All Owen Reason For Exam: Physician to Consult Discharge Meds Discharge Medications Home Medications rivaroxaban 20 mg tablet 20 mg PO QDAY 12/06/18 [History Confirmed 04/25/20 Last Taken 04/25/20 07:30] hydroxyzine HCl 25 mg tablet See Rx Instructions .ROUTE .COMPLEX #30 unknown measurement unit code: tablet 12/11/19 [Rx Confirmed 04/25/20 Last Taken Unknown] lisinopril 20 mg-hydrochlorothiazide 25 mg tablet See Rx Instructions .ROUTE .COMPLEX #90 tab 03/05/20 [Rx Confirmed 04/25/20 Last Taken 04/25/20 07:30] omeprazole 20 mg capsule,delayed release See Rx Instructions .ROUTE .COMPLEX #90 cap 03/05/20 [Rx Confirmed 04/25/20 Last Taken 04/25/20 07:30] polymyxin B sulfate 10,000 unit-trimethoprim 1 mg/mL eye drops 1 drp OPHTHALMIC Q3H 7 Days #10 ml 03/05/20 [Rx Confirmed 04/25/20 Last Taken Unknown] verapamil 240 mg tablet,extended release See Rx Instructions .ROUTE .COMPLEX #60 tab 03/11/20 [Rx Confirmed 04/25/20 Last Taken 04/25/20 07:30] COURSE Hospital Course Hospital course: . Discharge diagnosis: Hypovolemic shock, acute renal failure Time Spent with Patient Time attestation: Total time spent providing and/or coordinating discharge s ervices: EXAM Constitutional Vitals: Temp Pulse Resp BP Pulse Ox 98.9 F 67 20 116/67 96 04/28/20 09:14 04/28/20 09:14 04/28/20 09:14 04/28/20 09:14 04/28/20 09:14 Discharge Data Data Completed and Pending Labs on day of discharge: Labs from last 24 hours 04/28/20 04/28/20 04:45 04:45 WBC 6.3 RBC 3.82 L Hgb 11.6 L Hct 34.2 L MCV 89.5 MCH 30.4 MCHC 33.9 RDW 16.7 H Plt Count 263 MPV 9.3 Neut % (Auto) 61.0 Lymph % (Auto) 25.3 [place] % (Auto) 10.0 Eos % (Auto) 3.2 Baso % (Auto) 0.5 Lymph # (Auto) 1.59 [place] # (Auto) 0.63 Eos # (Auto) 0.20 Baso # (Auto) 0.03 Absolute Neutrophils 3.84 Sodium 127 L Potassium 3.5 Chloride 88 L Carbon Dioxide 32 H Anion Gap 7.0 L BUN 5 L Creatinine 1.0 GFR Calculation 78 Glucose 110 H Uric Acid 3.5 Calcium 8.1 L Phosphorus 2.8 Magnesium 1.5 L Total Bilirubin 0.5 Direct Bilirubin 0.2 GGT 38 AST 34 ALT 15 Alkaline Phosphatase 70 Lactate Dehydrogenase 167 Total Protein 6.1 Albumin 2.8 L Globulin 3.3 Albumin/Globulin Ratio 0.8 L Triglycerides 61 Preliminary micro results at discharge 04/25/20 15:30 Blood Culture - Preliminary Blood 04/25/20 15:27 Blood Culture - Preliminary Blood Discharge Plan Patient/Caregiver Discharge Instructions Activity: increase activity as tolerated Diet: Regular Diet Activity Restrictions/Additional Instructions: Advised to refrain from alcohol use Consider outpatient behavioral health clinic if patient desires to quit alcohol Return to ER if worsening weakness, shortness of breath chest pain noted follow- up PCP in 5 to 7 days Prescriptions: Continued polymyxin B sulf-trimethoprim [Polytrim] 10,000 unit- 1 mg/mL drops 1 drp OPHTHALMIC Q3H 7 Days Qty: 10 RF: 0 lisinopril-hydrochlorothiazide 20-25 mg tablet See Rx Instructions .ROUTE .COMPLEX Qty: 90 RF: 1 omeprazole 20 mg capsule,delayed release(DR/EC) See Rx Instructions .ROUTE .COMPLEX Qty: 90 RF: 1 hydroxyzine HCl 25 mg tablet 25 mg tablet See Rx Instructions .ROUTE .COMPLEX Qty: 30 RF: 3 verapamil 240 mg tablet extended release See Rx Instructions .ROUTE .COMPLEX Qty: 60 RF: 2 Xarelto 20 mg tablet 20 mg PO QDAY RF: 0 Follow Up Plan Follow up with: Juan Gardiner ARNP [Primary Care Provider] - Patient Disposition: Home Health Service Prognosis: Fair Rehab Potential: Good I certify that the patient requires SNF services: No Overall status at discharge: patient is progressing back to baseline Discharge Orders: Discharge Order (Routine); Ordered 04/28/20 Ordered By: All FRENCH VTE Deep Vein Thrombosis/Pulmonary Embolism Present on Admission: No
== END 2020-04-28 11:57 | disposition home health service (06) | DRG 872 ==
LOC: ED 10:59 → ICU 16:15
PROVIDERS: ADMIT Internal Medicine; ATTEND Internal Medicine